=== PATIENT | female | born 1985 | race Caucasian/White ===

== ENCOUNTER 2017-11-13 10:54 | Outpatient (CLI) | payer BC ==
[2017-11-13 11:13] VITALS: BP 126/85
[2017-11-13 11:58] VITALS: BP 146/80
[2017-11-13 12:21] LABS: UR CREATININE CONCENTRATION 55.9 MG/DL
[2017-11-13 12:28] VITALS: BP 133/81
[2017-11-13 12:35] LABS: BASOPHIL (%) 0.9 % (0-1); BASOPHIL COUNT 0.1 K/uL (0-0.1); EOSINOPHIL (%) 0.6 % (0-5); HEMATOCRIT 31.7 % (36.0-46.0); HEMOGLOBIN 10.8 G/DL (11.9-15.5); IMMATURE GRANULOCYTE (%) 0.9 % (0.0-0.7); LYMPHOCYTE COUNT 1.7 K/uL (1.0-2.8); MCH 28.8 PG (29.0-34.0); MCHC 34.1 G/DL (30.0-36.0); MCV 84.5 FL (83-99); MONOCYTE (%) 4.6 % (3-12); MONOCYTE COUNT 0.3 K/uL (0-0.8); NEUTROPHIL COUNT 4.5 K/uL (1.8-6.4); PLATELET COUNT 286 K/uL (156-360); RBC DIS.WIDTH-CV 12.7 % (11.8-14.6); RBC DIS.WIDTH-SD 38.1 % (39-53); RED BLOOD COUNT 3.75 M/uL (3.80-5.20); WHITE BLOOD COUNT 6.6 K/uL (4.1-10.2)
[2017-11-13 13:10] VITALS: BP 133/86
[2017-11-13 13:25] LABS: ALBUMIN 3.4 G/DL (3.2-4.8); ALKALINE PHOSPHATASE 144 IU/L (3-129); ALT (GPT) 11 IU/L (3-49); AST (GOT) 15 IU/L (2-34); CHLORIDE 104 MEQ/L (99-109); CREATININE 0.5 MG/DL (0.6-1.3); GFR ESTIMATE (CALCULATED) > 59 mL/min/; GLUCOSE 101 mg/dL (70-99); POTASSIUM 4.1 MEQ/L (3.7-5.4); SODIUM 133 MEQ/L (136-147); TOTAL BILIRUBIN 0.2 MG/DL (0.0-1.0); UREA NITROGEN (BUN) 8 mg/dL (9-23)
[2017-11-13 13:42] VITALS: BP 135/88
== END 2017-11-13 14:30 | disposition home or self-care (01) ==
LOC: LDRP-OP 10:54 → 2WEST 10:55 → LDRP-OP 12-30 16:16
PROVIDERS: Nurse Practitioner
DX: O16.3 Unspecified maternal hypertension, third trimester (principal); O99.343 Other mental disorders complicating pregnancy, third trimester; F41.9 Anxiety disorder, unspecified; F32.9 Major depressive disorder, single episode, unspecified; Z3A.37 37 weeks gestation of pregnancy
CPT/HCPCS: 59025; 80053; 82570; 84156; 85025; G0378

== ENCOUNTER 2017-11-23 22:19 | Inpatient (IN) | payer BC ==
[~2017-11-23] VITALS: Ht 165.1 cm; Wt 78.2 kg
[2017-11-23 22:34] VITALS: BP 142/93
[2017-11-23] MEDS ORDERED: ZOLOFT100 MG PO (22:42)
[2017-11-23] MEDS ORDERED: BUSPAR7.5 MG PO (22:43)
[2017-11-23] MEDS ORDERED: FAMOTIDINE20 MG PO (22:44)
[2017-11-23] MEDS ORDERED: PRENATAL TABLE1 EAC3 PO (22:44)
[2017-11-23 22:53] VITALS: BP 141/94
[2017-11-24] VITALS (23 sets, daily range): BP systolic 97–154; BP diastolic 54–97
[2017-11-24 00:22] LABS: BASOPHIL (%) 0.5 % (0-1); BASOPHIL COUNT 0.1 K/uL (0-0.1); EOSINOPHIL (%) 0.7 % (0-5); EOSINOPHIL COUNT 0.1 K/uL (0-0.3); HEMATOCRIT 31.4 % (36.0-46.0); HEMOGLOBIN 10.9 G/DL (11.9-15.5); IMMATURE GRANULOCYTE (%) 0.8 % (0.0-0.7); LYMPHOCYTE (%) 23.3 % (15-42); LYMPHOCYTE COUNT 2.4 K/uL (1.0-2.8); MCH 28.9 PG (29.0-34.0); MCHC 34.7 G/DL (30.0-36.0); MCV 83.3 FL (83-99); MONOCYTE (%) 5.8 % (3-12); MONOCYTE COUNT 0.6 K/uL (0-0.8); NEUTROPHIL (%) 68.9 % (45-76); PLATELET COUNT 283 K/uL (156-360); RBC DIS.WIDTH-CV 12.5 % (11.8-14.6); RBC DIS.WIDTH-SD 37.8 % (39-53); RED BLOOD COUNT 3.77 M/uL (3.80-5.20); WHITE BLOOD COUNT 10.2 K/uL (4.1-10.2)
[2017-11-24 00:33] LABS: ALBUMIN 3.6 g/dL (3.2-4.8); CHLORIDE 104 mEq/L (99-109); SODIUM 135 mEq/L (136-147)
[2017-11-24 00:35] LABS: GLUCOSE 90 mg/dL (70-99); TOTAL PROTEIN 6.3 g/dL (6.4-8.3)
[2017-11-24 00:37] LABS: TOTAL BILIRUBIN 0.2 mg/dL (0.0-1.0)
[2017-11-24 00:38] LABS: ALKALINE PHOSPHATASE 198 IU/L (3-129)
[2017-11-24 00:39] LABS: CREATININE 0.7 mg/dL (0.6-1.3); GFR ESTIMATE (CALCULATED) > 59 mL/min/
[2017-11-24 00:40] LABS: AST (GOT) 15 IU/L (2-34); UREA NITROGEN (BUN) 11 mg/dL (9-23)
[2017-11-24 00:41] LABS: ALT (GPT) 10 IU/L (3-49)
[2017-11-24 00:42] LABS: URIC ACID 5.1 mg/dL (3.1-9.2)
[2017-11-24 00:45] LABS: AMPHETAMINE NEGATIVE (500 ng/mL); BARBITURATES NEGATIVE (200 ng/mL); BENZODIAZEPINES NEGATIVE (150 ng/mL); BUPRENORPHINE NEGATIVE (10 ng/mL); COCAINE NEGATIVE (150 ng/mL); METHADONE NEGATIVE (200 ng/mL); METHAMPHETAMINE NEGATIVE (500 ng/mL); OPIATES (MORPHINE) NEGATIVE (100 ng/mL); OXYCODONE NEGATIVE (100 ng/mL); PHENCYCLIDINE NEGATIVE (25 ng/mL); PROPOXYPHENE NEGATIVE (300 ng/mL); THC CANNABINOIDS NEGATIVE (50 ng/mL); TRICYCLIC ANTIDEPRESSANTS NEGATIVE (300 ng/mL)
[2017-11-24 03:32] LABS: UR CREATININE CONCENTRATION 78.7 MG/DL
[2017-11-24] MEDS ORDERED: IBUPROFEN800 MG PO (13:12)
[2017-11-25] VITALS: BP 133/82
[2017-11-25 02:56] VITALS: BP 118/73
[2017-11-25 06:59] LABS: BASOPHIL (%) 0.3 % (0-1); EOSINOPHIL (%) 0.4 % (0-5); HEMATOCRIT 22.5 % (36.0-46.0); IMMATURE GRANULOCYTE (%) 0.8 % (0.0-0.7); LYMPHOCYTE (%) 19.9 % (15-42); LYMPHOCYTE COUNT 2.2 K/uL (1.0-2.8); MCH 28.2 PG (29.0-34.0); MCHC 32.9 G/DL (30.0-36.0); MCV 85.9 FL (83-99); MONOCYTE (%) 4.4 % (3-12); MONOCYTE COUNT 0.5 K/uL (0-0.8); NEUTROPHIL (%) 74.2 % (45-76); PLATELET COUNT 211 K/uL (156-360); RBC DIS.WIDTH-SD 39.9 % (39-53); WHITE BLOOD COUNT 10.8 K/uL (4.1-10.2)
[2017-11-25 07:01] LABS: RED BLOOD COUNT 2.62 M/uL (3.80-5.20)
[2017-11-25 07:02] LABS: HEMOGLOBIN 7.4 G/DL (11.9-15.5)
[2017-11-25 08:39] VITALS: BP 121/70
[2017-11-25 12:10] VITALS: BP 124/77
[2017-11-25 15:26] VITALS: BP 124/75
[2017-11-26 07:25] VITALS: BP 113/78
[2017-11-26] MEDS ORDERED: FERROUS SULFAT325 MG PO (10:07)
== END 2017-11-26 14:45 | disposition home or self-care (01) | DRG 774 ==
LOC: LDRP-OP 22:19 → 2WEST 22:22 → LDRP-OP 11-24 07:22 → 2WEST 11-24 12:23 → LDRP-OP 12-30 19:21
PROVIDERS: Advanced Practice Midwife; Midwife
PROC: 10907ZC Drainage of Amniotic Fluid, Therapeutic from Products of Conception, Via Natural or Artificial Opening (ICD-10-PCS; principal; 2017-11-24)
PROC: 00HU33Z Insertion of Infusion Device into Spinal Canal, Percutaneous Approach (ICD-10-PCS; principal; 2017-11-24)
PROC: 3E0R3BZ Introduction of Anesthetic Agent into Spinal Canal, Percutaneous Approach (ICD-10-PCS; principal; 2017-11-24)
PROC: 10E0XZZ Delivery of Products of Conception, External Approach (ICD-10-PCS; principal; 2017-11-24)
DX: O71.82 Other specified trauma to perineum and vulva (principal); O72.1 Other immediate postpartum hemorrhage; O77.0 Labor and delivery complicated by meconium in amniotic fluid; O13.4 Gestational [pregnancy-induced] hypertension without significant proteinuria, complicating childbirth; O34.13 Maternal care for benign tumor of corpus uteri, third trimester; D25.9 Leiomyoma of uterus, unspecified; O99.824 Streptococcus B carrier state complicating childbirth; O99.02 Anemia complicating childbirth; D62 Acute posthemorrhagic anemia; O99.344 Other mental disorders complicating childbirth; F32.9 Major depressive disorder, single episode, unspecified; F41.9 Anxiety disorder, unspecified; Z3A.39 39 weeks gestation of pregnancy; Z37.0 Single live birth
CPT/HCPCS: 80053; 82570; 84156; 84550; 85025; 88307; C1755; G0378; J2540; J3010; J7120